=== PATIENT | male | born 1965 | race Caucasian/White ===

== ENCOUNTER 2018-05-08 07:00 | Day surgery (SDC) | payer OTHER ==
--- NOTE | 2018-05-07 11:28 | EKG ---
Test Date: 2018-05-07 Test Time: 09:42:52 Store Clerk Cashier: FLASH MEASUREMENT RESULTS: Intervals: Rate: 54 WI: 166 QRSD: 80 QT: 414 QTc: 392 [place]: P: 28 WI: 166 QRS: 0 T: 22 INTERPRETIVE STATEMENTS: Sinus bradycardia Otherwise normal ECG No previous ECG available for comparison Electronically Signed On 05-07-18 11:27:31 OPERATIONS AND MAINTENANCE SPECIALIST by Jake Gordon
[2018-05-08] MEDS ORDERED: Ringers Lactate 1,000 ML IV ONE (07:34)
[2018-05-08] MEDS: OXYMETAZOLINE HCL 0.05% 15ML NAS ONE ×3 (07:41→07:52)
[2018-05-08] MEDS ORDERED: PROPOFOL 200 MG/20 ML VIAL IV ONE (07:54)
[2018-05-08] MEDS ORDERED: ROCURONIUM 50 MG/5 ML VIAL IV ONE (07:55)
[2018-05-08] MEDS ORDERED: FENTANYL CITR 100 MCG/2 ML ONE (07:55)
[2018-05-08] MEDS ORDERED: MIDAZOLAM HCL 2 MG/2 ML INJ ONE (07:55)
[2018-05-08] MEDS ORDERED: ONDANSETRON HCL 40 MG/20 ML VIAL ONE (07:55)
[2018-05-08] MEDS ORDERED: LIDOCAINE 2% MPF 5 ML VIAL ONE (07:55)
[2018-05-08] MEDS ORDERED: OXYMETAZOLINE HCL 0.05% 15ML NAS ONE (08:10)
[2018-05-08] MEDS ORDERED: LIDOCAINE 1% W/EPI 1:100,000 MDV 50 ML VIAL ONE (08:10)
[2018-05-08] MEDS ORDERED: NA CHLORIDE 0.9% 500 ML ONE (08:33)
[2018-05-08] MEDS ORDERED: GLYCOPYRROLATE 0.2 MG/ML SYR ONE (09:33)
[2018-05-08] MEDS ORDERED: NEOSTIGMINE 1 MG/ML -5 ML SYRINGE ONE (09:33)
--- NOTE | 2018-05-08 09:35 | P.BOP ---
Preoperative diagnosis: CRS, turb hypertrophy Postoperative diagnosis: same Primary procedure: NE with frontal, sphenoid and max BSP Secondary procedure: ITR Reconditioning Associate: NONE,NONE Estimated blood loss: 15ml Specimen: none Anesthesia: General Complications: None Fluids & blood products: crystalloid 500ml Transferred to: Recovery Room Condition: Good
[2018-05-08] MEDS: MEPERIDINE HCL 25 MG/0.5 ML ONE ×2 (10:20→10:25)
[2018-05-08] MEDS ORDERED: HYDROCODONE/APAP 5/325 MG TAB ONE (11:33)
--- NOTE | 2018-05-10 01:43 | OP ---
Date of Procedure: 05/08/2018 Surgeon: Joselyn Cope MD Preoperative Diagnoses: Chronic rhinosinusitis, inferior turbinate hypertrophy, nasal obstruction. Postoperative Diagnoses: Chronic rhinosinusitis, inferior turbinate hypertrophy, nasal obstruction. Procedure: Bilateral nasal endoscopy with frontal sphenoid and maxillary balloon dilation and bilate ral inferior turbinate reduction by down fracture and submucosal resection. Indication For Procedure: Mr. Medina presented with chronic rhinosinusitis symptoms and a CT scan anthony wing mucosal thickening in the nasal outflow tracts as well as large turbinates, recalcitrant to nasa l steroids. The risks, benefits, and alternatives were discussed with the patient, who agreed to pro ceed. Description Of Procedure: The patient was brought to the operating room. He was placed under genera l anesthesia via oral endotracheal tube. The head of bed was turned 90 degrees. The nasal hairs wer e trimmed and the nasal cavity was packed with Afrin-soaked pledgets. The entellus balloon was prepa red for use, according to materials engineer's instructions. The nasal pledgets were removed. A 0-degree endoscope was used to perform a nasal endoscopy. The inferior turbinates were noted to be large and obstructing the nasal cavity. The middle turbinate was carefully medialized using a [place]. The ente llus balloon device was used to carefully probe the frontal recess. The device was passed through th e frontal recess and confirmation of location was performed using bright illumination of the frontal sinus with the fiberoptic light cable. The balloon was then advanced over the catheter and inflated for several seconds and then deflated and carefully withdrawn. A similar procedure was performed on the contralateral side. The device was then bent for use of the sphenoid sinus. Using the 0-degree endoscope, the device was passed into the sphenoethmoid recess and with careful palpation along the f horacio of the sphenoid, the os was identified and cannulated. The balloon was then advanced over the ri gid cannula, inflated for several seconds, carefully deflated, and then withdrawn. A similar procedu re was performed on the contralateral side. The device was then reconfigured for use in the maxillar y sinus by bending it to 135 degree angle with the tip up. The device was passed around the uncinate into the maxillary sinus. The placement was confirmed by bright illumination of the maxillary sinus . The balloon device was then advanced over the rigid cannula and inflated for several seconds and t hen carefully deflated. The balloon dilation device was then carefully rotated out of the infundibul um and a similar procedure was performed on the contralateral side. Minimal bleeding ensued and suct ion of blood and clot from the nasal and sinus cavities was performed. Attention was then turned tow ards the inferior turbinate. Lidocaine 1% with epinephrine was injected into the head of the inferio r turbinate bilaterally. A sickle knife was used to make an incision in the head of the middle turbi shiva and a Emelina elevator was used to develop a submucosal pocket. The microdebrider fitted with in ferior turbinate blade was used to remove excessive submucosal tissue resulting in significant improv ement in the nasal valve. Additional excess fluid around the inferior most aspect was removed with t he microdebrider. The Long elevator was then used to down fracture the inferior turbinate and imp rove the nasal airway. Similar procedure was performed on the contralateral side. Afrin-soaked pled gets were placed within the nasal cavity for several minutes and then removed. There was minimal ble eding and no additional packing was required. A mustache dressing was applied and the patient was re turned to care of anesthesia for awakening and extubation in the operating room, which proceeded with out difficulty. The patient will be discharged later today in the care of his and follow up dilia Cope in 10 to 14 days for re-evaluation of healing. [facility] Voice ID: [id number] Report ID: [id number]
== END 2018-05-08 13:00 | disposition home or self-care (01) ==
LOC: OR 07:00
PROVIDERS: ATTEND Otolaryngology
PROC: 09QW8ZZ Repair Right Sphenoid Sinus, Via Natural or Artificial Opening Endoscopic (ICD-10-PCS; 2018-05-08)
PROC: 09QX8ZZ Repair Left Sphenoid Sinus, Via Natural or Artificial Opening Endoscopic (ICD-10-PCS; 2018-05-08)
PROC: 09QQ8ZZ Repair Right Maxillary Sinus, Via Natural or Artificial Opening Endoscopic (ICD-10-PCS; 2018-05-08)
PROC: 09QR8ZZ Repair Left Maxillary Sinus, Via Natural or Artificial Opening Endoscopic (ICD-10-PCS; 2018-05-08)
PROC: 09QS8ZZ Repair Right Frontal Sinus, Via Natural or Artificial Opening Endoscopic (ICD-10-PCS; 2018-05-08)
PROC: 09BL4ZZ Excision of Nasal Turbinate, Percutaneous Endoscopic Approach (ICD-10-PCS; 2018-05-08)
PROC: 09QT8ZZ Repair Left Frontal Sinus, Via Natural or Artificial Opening Endoscopic (ICD-10-PCS; principal; 2018-05-08 08:15)
DX: J32.8 Other chronic sinusitis (principal); J34.3 Hypertrophy of nasal turbinates; J34.89 Other specified disorders of nose and nasal sinuses; E03.9 Hypothyroidism, unspecified; Z79.899 Other long term (current) drug therapy
CPT/HCPCS: 93005; J2175; J2250; J2405; J2704; J2710; J3010